=== PATIENT | male | born 2000 | race Caucasian/White ===

== ENCOUNTER 2018-04-21 02:34 | Emergency (ER) | payer OTHER ==
[2018-04-21 02:45] VITALS: BP 127/83
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
[2018-04-21] MEDS ORDERED: LIDOCAINE 2% JELLY 5 ML TUBE TP ONE (02:55)
[2018-04-21] MEDS ORDERED: LOR5/325 PO (04:32)
[2018-04-21] MEDS ORDERED: ACET/HYDROC 5/325MG TH ER ONLY 2 TAB/BOTTLE PO ONE (04:35)
== END 2018-04-21 04:56 | disposition home or self-care (01) ==
LOC: ER 02:54
DX: T23.161A Burn of first degree of back of right hand, initial encounter (principal); T22.131A Burn of first degree of right upper arm, initial encounter; X02.0XXA Exposure to flames in controlled fire in building or structure, initial encounter
CPT/HCPCS: 99283